=== PATIENT | male | born 1980 | race African-American/Black ===

== ENCOUNTER 2018-06-06 14:50 | Emergency (ER) | payer MEDICAID ==
[~2018-06-06] VITALS: Ht 177.8 cm; Wt 107.0 kg
[~2018-06-06 14:50] MED LIST: TYLENOL #3
[2018-06-06] MEDS ORDERED: KETOROLAC 30MG/ML VIAL IV ONE (17:00)
[2018-06-06 18:32] LABS: BASOPHILS % 0.6 % (0.0-2.0); EOSINOPHILS % 0.2 % (0.0-5.0); HEMATOCRIT. 42.7 % (42.0-52.0); LYMPHOCYTES % 14.6 % (20.0-50.0); MEAN CORPUSCULAR HEMOGLOBIN 27.5 pg (28.0-32.0); MEAN CORPUSCULAR VOLUME 83.9 fL (80.0-94.0); MEAN PLATELET VOLUME 10.2 fl (7.4-10.4); MONOCYTES % 13.4 % (2.0-8.0); NEUTROPHILS % 71.2 % (40.0-76.0); PLATELET 189 x1000/uL (130-400); RED BLOOD CELL COUNT 5.09 mill/uL (4.7-6.1); RED CELL DISTRIBUTION WIDTH 13.7 % (11.6-14.6)
[2018-06-06 18:35] LABS: CHLORIDE 99 mEq/L (98-107)
[2018-06-06] MEDS ORDERED: IOHEXOL-300 100 ML BOTTLE ONE (19:50)
[2018-06-06] MEDS ORDERED: PREDNISONE 20MG TABLET PO ONE (21:00)
[2018-06-06 21:55] VITALS: BP 126/70
== END 2018-06-06 21:55 | disposition home or self-care (01) ==
LOC: ER 14:50
DX: J02.9 Acute pharyngitis, unspecified (principal); D72.829 Elevated white blood cell count, unspecified
CPT/HCPCS: 36415; 70491; 80048; 85025; 87070; 87430; 96374; 99285; J1885; J7512; Q9967

== ENCOUNTER 2022-05-28 04:42 | Emergency (ER) | payer MEDICAID, OTHER ==
[~2022-05-28] VITALS: Ht 180.3 cm; Wt 105.0 kg
[2022-05-28 06:32] LABS: CLARITY URINE CLEAR (CLEAR); COLOR URINE DARK YELLOW (YELLOW); KETONES URINE TRACE (NEGATIVE); LEUKOCYTE ESTERASE URINE TRACE (NEGATIVE); NITRITE URINE NEGATIVE (NEGATIVE); OCCULT BLOOD URINE NEGATIVE (NEGATIVE); PROTEIN URINE NEGATIVE (NEGATIVE)
[2022-05-28] MEDS ORDERED: TOPUD PO (07:09)
[2022-05-28 07:54] VITALS: BP 153/83
== END 2022-05-28 07:56 | disposition home or self-care (01) ==
LOC: ER 04:42
DX: R10.32 Left lower quadrant pain (principal)
CPT/HCPCS: 74176; 81003; 99284

== ENCOUNTER 2022-11-18 10:06 | Emergency (ER) | payer OTHER ==
[~2022-11-18] VITALS: Ht 175.3 cm; Wt 100.0 kg
[~2022-11-18 10:06] MED LIST changes: +TOPUD PO
[2022-11-18 10:21] VITALS: BP 158/100
== END 2022-11-18 13:16 | disposition home or self-care (01) ==
LOC: ER 10:06
DX: S69.92XA Unspecified injury of left wrist, hand and finger(s), initial encounter (principal); W22.8XXA Striking against or struck by other objects, initial encounter; Y93.89 Activity, other specified; Y92.89 Other specified places as the place of occurrence of the external cause; Y99.8 Other external cause status
CPT/HCPCS: 29125; 73130; 99283

== ENCOUNTER 2022-11-28 16:04 | Emergency (ER) | payer OTHER | END 2022-11-28 18:18 | disposition left against medical advice (07) | LOC: ER 16:04 | DX: Z53.21 Procedure and treatment not carried out due to patient leaving prior to being seen by health care provider (principal) ==

== ENCOUNTER 2022-12-26 23:49 | Emergency (ER) | payer OTHER ==
[~2022-12-26] VITALS: Ht 175.3 cm; Wt 129.7 kg
[2022-12-27 00:39] VITALS: BP 119/80
[2022-12-27] MEDS ORDERED: TOPUD MT (02:42)
[2022-12-27] MEDS ORDERED: ACETAMINOPHEN WITH CODEINE 300/30MG TABLET PO ONE (02:45)
== END 2022-12-27 03:16 | disposition home or self-care (01) ==
LOC: ER 23:49
DX: G89.29 Other chronic pain (principal); M25.561 Pain in right knee
CPT/HCPCS: 99281

== ENCOUNTER 2023-06-06 04:28 | Emergency (ER) | payer OTHER ==
[~2023-06-06] VITALS: Ht 175.3 cm; Wt 111.0 kg
[~2023-06-06 04:28] MED LIST changes: +TOPUD MT
[2023-06-06 04:50] VITALS: O2SAT 98
[2023-06-06 07:00] VITALS: BP 145/90; PULSE 75; RESP 12; TEMP 98
== END 2023-06-06 07:02 | disposition home or self-care (01) ==
LOC: ER 04:28
DX: H66.93 Otitis media, unspecified, bilateral (principal); B34.9 Viral infection, unspecified
CPT/HCPCS: 99281

== ENCOUNTER 2024-02-26 03:16 | Emergency (ER) | payer MEDICAID, OTHER ==
[~2024-02-26] VITALS: Ht 177.8 cm; Wt 105.0 kg
[2024-02-26 03:55] VITALS: O2SAT 96
[2024-02-26] MEDS: KETOROLAC 60MG/2ML VIAL IM ONE (06:21)
[2024-02-26 07:04] VITALS: BP 131/73; PULSE 72; RESP 18; TEMP 98.1
== END 2024-02-26 07:05 | disposition home or self-care (01) ==
LOC: ER 03:16
DX: M25.561 Pain in right knee (principal); J45.909 Unspecified asthma, uncomplicated; I10 Essential (primary) hypertension
CPT/HCPCS: 73560; 96372; 99283; J1885; Z7610

== ENCOUNTER 2024-03-02 03:04 | Emergency (ER) | payer OTHER ==
[~2024-03-02] VITALS: Ht 177.8 cm; Wt 105.0 kg
[2024-03-02 03:28] VITALS: BP 158/76; PULSE 92; RESP 17; TEMP 97.8; O2SAT 98
== END 2024-03-02 08:42 | disposition left against medical advice (07) ==
LOC: ER 03:04
DX: R42 Dizziness and giddiness (principal); J45.909 Unspecified asthma, uncomplicated; I10 Essential (primary) hypertension; Z98.890 Other specified postprocedural states
CPT/HCPCS: 71045; 99283

== ENCOUNTER 2024-03-06 01:02 | Emergency (ER) | payer OTHER ==
[~2024-03-06] VITALS: Ht 175.3 cm; Wt 105.0 kg
[2024-03-06 01:10] VITALS: BP 156/105; PULSE 69; RESP 16; TEMP 98.9; O2SAT 99
[2024-03-06] MEDS ORDERED: IBUP-2029 MT (04:09)
[2024-03-06] MEDS: KETOROLAC 60MG/2ML VIAL IM NR (04:40)
== END 2024-03-06 04:40 | disposition home or self-care (01) ==
LOC: ER 01:44
DX: M25.561 Pain in right knee (principal); J45.909 Unspecified asthma, uncomplicated; I10 Essential (primary) hypertension; Z00.00 Encounter for general adult medical examination without abnormal findings
CPT/HCPCS: 93971; 73562; 99284; J1885; Z7610; L1830

== ENCOUNTER 2024-04-03 02:00 | Emergency (ER) | payer OTHER ==
[~2024-04-03] VITALS: Ht 175.3 cm; Wt 231.0 kg
[~2024-04-03 02:00] MED LIST changes: +IBUP-2029 MT
[2024-04-03 02:18] VITALS: BP 165/87; PULSE 82; RESP 18; TEMP 98.1; O2SAT 96
[2024-04-03] MEDS ORDERED: KETOROLAC 30MG/ML VIAL IV NR (03:15)
[2024-04-03] MEDS: KETOROLAC 30MG/ML VIAL IM NR (03:35)
[2024-04-03] MEDS: IBUPROFEN 600MG TABLET PO ONE (03:55)
== END 2024-04-03 05:33 | disposition home or self-care (01) ==
LOC: ER 02:00
DX: S76.311A Strain of muscle, fascia and tendon of the posterior muscle group at thigh level, right thigh, initial encounter (principal); Z00.00 Encounter for general adult medical examination without abnormal findings; X58.XXXA Exposure to other specified factors, initial encounter; Y93.89 Activity, other specified; Y92.89 Other specified places as the place of occurrence of the external cause; Y99.8 Other external cause status
CPT/HCPCS: 93971; 99284; Z7610; J1885

== ENCOUNTER 2024-04-13 02:25 | Emergency (ER) | payer OTHER ==
[~2024-04-13] VITALS: Ht 175.3 cm; Wt 126.0 kg
[2024-04-13 02:43] VITALS: BP 152/77; PULSE 68; RESP 18; TEMP 98.1; O2SAT 95
[2024-04-13] MEDS ORDERED: P50 MT (06:01)
[2024-04-13] MEDS ORDERED: ALBU6.7H15 INH (06:02)
[2024-04-13] MEDS ORDERED: GUAI120017 MT (06:02)
== END 2024-04-13 06:41 | disposition home or self-care (01) ==
LOC: ER 02:25
DX: J20.9 Acute bronchitis, unspecified (principal); Z79.899 Other long term (current) drug therapy
CPT/HCPCS: 71045; 93005; 99283

== ENCOUNTER 2024-04-19 02:40 | Emergency (ER) | payer OTHER ==
[~2024-04-19] VITALS: Ht 175.3 cm; Wt 110.0 kg
[~2024-04-19 02:40] MED LIST changes: +ALBU6.7H15 INH; +GUAI120017 MT; +P50 MT
[2024-04-19 03:01] VITALS: BP 165/68; PULSE 85; RESP 17; TEMP 97.8; O2SAT 96
[2024-04-19] MEDS ORDERED: CELE-384 MT (07:21)
[2024-04-19] MEDS ORDERED: KETOROLAC 30MG/ML VIAL IM ONE (07:30)
== END 2024-04-19 07:34 | disposition home or self-care (01) ==
LOC: ER 02:40
DX: M25.561 Pain in right knee (principal); I10 Essential (primary) hypertension; Z79.899 Other long term (current) drug therapy; W18.30XA Fall on same level, unspecified, initial encounter; Y93.01 Activity, walking, marching and hiking; Y92.89 Other specified places as the place of occurrence of the external cause; Y99.8 Other external cause status
CPT/HCPCS: 73562; 99283

== ENCOUNTER 2024-05-03 06:01 | Emergency (ER) | payer OTHER ==
[~2024-05-03] VITALS: Ht 175.3 cm; Wt 105.0 kg
[~2024-05-03 06:01] MED LIST changes: +CELE-384 MT
[2024-05-03 06:16] VITALS: O2SAT 96
[2024-05-03] MEDS ORDERED: TOPUD PO (08:27)
[2024-05-03] MEDS ORDERED: IBUP-2028 MT (08:27)
[2024-05-03 08:42] VITALS: BP 180/99; PULSE 95; RESP 18; TEMP 98.2
[2024-05-03] MEDS: ACETAMINOPHEN 325MG TABLET PO ONE (08:42)
[2024-05-03] MEDS: IBUPROFEN 400MG TABLET PO ONE (08:42)
== END 2024-05-03 08:54 ==
LOC: ER 06:12
DX: S83.91XA Sprain of unspecified site of right knee, initial encounter (principal); Z79.899 Other long term (current) drug therapy; W18.30XA Fall on same level, unspecified, initial encounter; Y93.89 Activity, other specified; Y92.89 Other specified places as the place of occurrence of the external cause; Y99.8 Other external cause status
CPT/HCPCS: 73552; 73562; 73590; 99284; Z7610 ×2; L1830

== ENCOUNTER 2024-08-13 02:38 | Emergency (ER) | payer OTHER ==
[~2024-08-13] VITALS: Ht 177.8 cm; Wt 107.0 kg
[~2024-08-13 02:38] MED LIST changes: +CEL200 MT; -CELE-384 MT; +IBUP-2028 MT
[2024-08-13 02:39] VITALS: O2SAT 99
[2024-08-13 02:59] VITALS: BP 147/84; PULSE 93; RESP 18; TEMP 97.8; O2SAT 95
[2024-08-13] MEDS ORDERED: KETOROLAC 15MG/ML VIAL IM ONE (03:30)
[2024-08-13] MEDS ORDERED: NAP5EC MT (04:59)
[2024-08-13] MEDS ORDERED: LIDO700A15 TP (04:59)
[2024-08-13] MEDS: IBUPROFEN 600MG TABLET PO ONE (05:15)
== END 2024-08-13 05:25 | disposition home or self-care (01) ==
LOC: ER 02:47
DX: M25.561 Pain in right knee (principal); I10 Essential (primary) hypertension; Z79.899 Other long term (current) drug therapy
CPT/HCPCS: 73562; 99283; J1885

== ENCOUNTER 2024-12-21 02:52 | Emergency (ER) | payer OTHER ==
[~2024-12-21] VITALS: Ht 175.3 cm; Wt 115.0 kg
[~2024-12-21 02:52] MED LIST changes: +LIDO700A15 TP; +NAPR-1495 MT
[2024-12-21 03:06] VITALS: O2SAT 99
[2024-12-21] MEDS: MAGNESIUM/ALUMINUM HYDROXIDE/SIMETHICONE 30ML UDC PO STA (04:23)
[2024-12-21] MEDS: ACETAMINOPHEN 325MG TABLET PO STA (04:24)
[2024-12-21 05:20] VITALS: BP 133/71; PULSE 81; RESP 18; TEMP 36.7; O2SAT 99
[2024-12-21] MEDS ORDERED: ONDA-239 PO (06:13)
== END 2024-12-21 06:20 | disposition home or self-care (01) ==
LOC: ER 02:52
DX: R10.84 Generalized abdominal pain (principal); Z79.1 Long term (current) use of non-steroidal anti-inflammatories (NSAID); Z79.899 Other long term (current) drug therapy
CPT/HCPCS: 71045; 74176; 99284

== ENCOUNTER 2025-01-22 00:24 | Emergency (ER) | payer OTHER ==
[~2025-01-22] VITALS: Ht 175.3 cm; Wt 133.8 kg
[~2025-01-22 00:24] MED LIST changes: +ONDA-239 PO
[2025-01-22 00:28] VITALS: BP 156/84; PULSE 90; RESP 18; TEMP 36.5; O2SAT 96; O2SAT 97
[2025-01-22] MEDS ORDERED: HYDR453.3 TP (00:51)
== END 2025-01-22 01:12 | disposition home or self-care (01) ==
LOC: ER 00:24
DX: R21 Rash and other nonspecific skin eruption (principal); Z79.899 Other long term (current) drug therapy
CPT/HCPCS: 99282